=== PATIENT | male | born 1990 | race Caucasian/White ===

== ENCOUNTER 2017-06-14 08:04 | Inpatient (IN) | payer SELFPAY ==
[~2017-06-14] VITALS: Ht 172.7 cm; Wt 95.3 kg
[2017-06-14] MEDS ORDERED: ONDANSETRON HCL 4MG/2ML VIAL IV ONE (09:15)
[2017-06-14] MEDS ORDERED: FAMOTIDINE 20MG/2ML VIAL IV ONE (09:15)
[2017-06-14] MEDS ORDERED: MORPHINE SULFATE 2 MG/ML CPJ (NOT FOR IM USE) IV ONE ×2 (09:15)
[2017-06-14] MEDS ORDERED: SODIUM CHLORIDE 0.9% 1000ML BAG (SEPSIS BOLUS) IV ONE (09:15)
[2017-06-14 09:35] LABS: BASOPHILS % 0.5 % (0.0-2.0); HEMATOCRIT. 48.9 % (42.0-52.0); LYMPHOCYTES % 10.4 % (20.0-50.0); MEAN CORPUSCULAR VOLUME 97.1 fL (80.0-94.0); MEAN PLATELET VOLUME 10.4 fl (7.4-10.4); NEUTROPHILS % 85.1 % (40.0-76.0); PLATELET 163 x1000/uL (130-400); RED BLOOD CELL COUNT 5.04 mill/uL (4.7-6.1); RED CELL DISTRIBUTION WIDTH 14.4 % (11.6-14.6)
[2017-06-14 10:07] LABS: INR 1.1; PROTHROMBIN TIME 11.4 sec (9.4-11.6)
[2017-06-14 10:10] LABS: HEMOGLOBIN. 16.1 g/dL (14.0-18.0)
[2017-06-14 10:11] LABS: MEAN CORPUSCULAR HEMOGLOBIN 31.9 pg (28.0-32.0)
[2017-06-14 10:25] LABS: CARBON DIOXIDE 17 mEq/L (21-32); CHLORIDE 100 mEq/L (98-107)
[2017-06-14] MEDS ORDERED: PIPERACILLIN/TAZOBACTAM 3.375GM/50ML PREMIX IV ONE (11:00)
[2017-06-14] MEDS ORDERED: LEVOFLOXACIN 750MG PREMIX 150 ML IV ONE (11:45)
[2017-06-14 16:02] LABS: CLARITY URINE CLOUDY (CLEAR); COLOR URINE DARK YELLOW (YELLOW); GLUCOSE URINE NEGATIVE (NEGATIVE); KETONES URINE 1+ (NEGATIVE); LEUKOCYTE ESTERASE URINE TRACE (NEGATIVE); NITRITE URINE NEGATIVE (NEGATIVE); OCCULT BLOOD URINE TRACE (NEGATIVE); PROTEIN URINE 2+ (NEGATIVE); SPECIFIC GRAVITY URINE 1.032 (1.005-1.030)
[2017-06-14 16:50] VITALS: BP 142/93
[2017-06-14 17:27] VITALS: BP 142/93
[2017-06-14] MEDS ORDERED: MORPHINE SULFATE 10 MG/ML CPJ IV PRN (18:30)
[2017-06-14 20:00] VITALS: BP 126/87
[2017-06-14] MEDS ORDERED: LORAZEPAM 1MG TABLET PO PRN ×2 (20:45→23:15)
[2017-06-14] MEDS: ONDANSETRON HCL 4MG/2ML VIAL IV PRN (20:55)
[2017-06-14] MEDS ORDERED: MAGNESIUM 2 G PREMIX 50 ML IV PRN (21:00)
[2017-06-14] MEDS ORDERED: MVI, ADULT NO.1 10 ML, FOLIC ACID 1 MG, THIAMINE HCL 100 MG in SODIUM CHLORIDE 0.9% 1,0... IV SCH ×4 (22:00)
[2017-06-15] VITALS: BP 135/91
[2017-06-15 00:07] LABS: CHLORIDE 96 mEq/L (98-107)
[2017-06-15 00:16] LABS: CARBON DIOXIDE 20 mEq/L (21-32)
[2017-06-15] MEDS: PANTOPRAZOLE SODIUM 40 MG/VIAL IV SCH ×3 (02:09→21:27)
[2017-06-15] MEDS: DIPHENHYDRAMINE 50MG/ML VIAL IV PRN ×2 (02:20→21:32)
[2017-06-15] MEDS: MORPHINE SULFATE 10 MG/ML CPJ IV PRN ×4 (02:21→14:37)
[2017-06-15 04:00] VITALS: BP 135/93
[2017-06-15] MEDS: ONDANSETRON HCL 4MG/2ML VIAL IV PRN ×4 (05:41→21:27)
[2017-06-15 06:41] LABS: BASOPHILS % 0.4 % (0.0-2.0); EOSINOPHILS % 0.2 % (0.0-5.0); HEMOGLOBIN. 14.2 g/dL (14.0-18.0); LYMPHOCYTES % 12.7 % (20.0-50.0); MEAN CORPUSCULAR HEMOGLOBIN 34.6 pg (28.0-32.0); MEAN PLATELET VOLUME 12.7 fl (7.4-10.4); MONOCYTES % 6.2 % (2.0-8.0); NEUTROPHILS % 80.5 % (40.0-76.0); PLATELET 156 x1000/uL (130-400); RED BLOOD CELL COUNT 4.11 mill/uL (4.7-6.1); RED CELL DISTRIBUTION WIDTH 14.9 % (11.6-14.6)
[2017-06-15 06:43] LABS: HEMATOCRIT. 41.8 % (42.0-52.0)
[2017-06-15 08:00] VITALS: BP 118/76
[2017-06-15] MEDS: POTASSIUM CHLORIDE INJ 40 MEQ in DEXT 5%/0.9% NACL 1,000 ML IV SCH ×2 (09:10→16:24)
[2017-06-15 10:16] LABS: PHOSPHORUS 1.3 mg/dL (2.5-4.9)
[2017-06-15 12:00] VITALS: BP 119/76
[2017-06-15 16:00] VITALS: BP 112/87
[2017-06-15] MEDS: FOLIC ACID 1MG TABLET PO SCH (16:16)
[2017-06-15] MEDS: THIAMINE HCL 100MG TABLET PO SCH (16:16)
[2017-06-15] MEDS: MULTIVITAMINS,THER W-MINERALS TABLET PO SCH (16:17)
[2017-06-15] MEDS: ACETAMINOPHEN 325MG TABLET PO PRN (16:25)
[2017-06-15 16:39] LABS: CHLORIDE 100 mEq/L (98-107)
[2017-06-15 16:46] LABS: CARBON DIOXIDE 16 mEq/L (21-32)
[2017-06-15 16:58] LABS: AMYLASE 72 IU/L (25-115)
[2017-06-15] MEDS ORDERED: HYDROMORPHONE HCL/PF 2MG/ML CPJ IM PRN (17:00)
[2017-06-15] MEDS: CHLORDIAZEPOXIDE 25MG CAPSULE PO SCH (17:25)
[2017-06-15] MEDS: HYDROMORPHONE HCL/PF 2MG/ML CPJ IV PRN (19:28)
[2017-06-15 20:00] VITALS: BP 126/81
[2017-06-16] VITALS: BP 108/71
[2017-06-16] MEDS: ONDANSETRON HCL 4MG/2ML VIAL IV PRN ×4 (01:25→18:44)
[2017-06-16] MEDS: HYDROMORPHONE HCL/PF 2MG/ML CPJ IV PRN ×4 (01:26→18:44)
[2017-06-16] MEDS: POTASSIUM CHLORIDE INJ 40 MEQ in DEXT 5%/0.9% NACL 1,000 ML IV SCH ×2 (03:16→14:00)
[2017-06-16 04:00] VITALS: BP 122/77
[2017-06-16 07:10] LABS: BASOPHILS % 0.4 % (0.0-2.0); EOSINOPHILS % 0.6 % (0.0-5.0); HEMATOCRIT. 33.7 % (42.0-52.0); HEMOGLOBIN. 11.6 g/dL (14.0-18.0); LYMPHOCYTES % 20.3 % (20.0-50.0); MEAN CORPUSCULAR VOLUME 95.7 fL (80.0-94.0); MEAN PLATELET VOLUME 10.6 fl (7.4-10.4); MONOCYTES % 13.4 % (2.0-8.0); NEUTROPHILS % 65.3 % (40.0-76.0); PLATELET 138 x1000/uL (130-400); RED BLOOD CELL COUNT 3.52 mill/uL (4.7-6.1); RED CELL DISTRIBUTION WIDTH 14.5 % (11.6-14.6)
[2017-06-16 08:00] VITALS: BP 126/78
[2017-06-16 08:45] LABS: CARBON DIOXIDE 21 mEq/L (21-32); CHLORIDE 98 mEq/L (98-107)
[2017-06-16] MEDS: THIAMINE HCL 100MG TABLET PO SCH (10:18)
[2017-06-16] MEDS: PANTOPRAZOLE SODIUM 40 MG/VIAL IV SCH ×2 (10:18→21:21)
[2017-06-16] MEDS: MULTIVITAMINS,THER W-MINERALS TABLET PO SCH (10:19)
[2017-06-16] MEDS: FOLIC ACID 1MG TABLET PO SCH (10:19)
[2017-06-16] MEDS: CHLORDIAZEPOXIDE 25MG CAPSULE PO SCH ×2 (10:19→18:44)
[2017-06-16] MEDS: MAGNESIUM/ALUMINUM HYDROXIDE/SIMETHICONE 30ML UDC PO PRN (11:07)
[2017-06-16 12:00] VITALS: BP 118/79
[2017-06-16] MEDS ORDERED: CALCIUM CHLORIDE 1,000 MG in DEXT 5% WATER 90 ML IV NR ×2 (12:00→21:00)
[2017-06-16] MEDS ORDERED: POTASSIUM PHOS,M-BASIC-D-BASIC 30 MMOL in DEXT 5% WATER 500 ML IV NR (13:00)
[2017-06-16] MEDS: ACETAMINOPHEN 325MG TABLET PO PRN (14:01)
[2017-06-16] MEDS ORDERED: HYDROMORPHONE HCL/PF 2MG/ML CPJ IM PRN (15:00)
[2017-06-16 16:00] VITALS: BP 122/92
[2017-06-16] MEDS: METRONIDAZOLE 500 MG PREMIX 100 ML IV SCH ×2 (16:22→22:43)
[2017-06-16] MEDS: LORAZEPAM 1MG TABLET PO PRN (17:08)
[2017-06-16] MEDS: LEVOFLOXACIN 500MG PREMIX 100 ML IV SCH (18:44)
[2017-06-16 20:00] VITALS: BP 104/63
[2017-06-17] VITALS: BP 120/70
[2017-06-17] MEDS: HYDROMORPHONE HCL/PF 2MG/ML CPJ IV PRN ×6 (00:20→20:56)
[2017-06-17 04:00] VITALS: BP 135/68
[2017-06-17] MEDS: POTASSIUM CHLORIDE INJ 40 MEQ in DEXT 5%/0.9% NACL 1,000 ML IV SCH ×2 (06:20→16:26)
[2017-06-17] MEDS: METRONIDAZOLE 500 MG PREMIX 100 ML IV SCH ×2 (06:20→14:46)
[2017-06-17 08:00] VITALS: BP 159/93
[2017-06-17] MEDS: MULTIVITAMINS,THER W-MINERALS TABLET PO SCH (10:06)
[2017-06-17] MEDS: CHLORDIAZEPOXIDE 25MG CAPSULE PO SCH ×2 (10:07→18:56)
[2017-06-17] MEDS: PANTOPRAZOLE SODIUM 40 MG/VIAL IV SCH ×2 (10:08→20:57)
[2017-06-17] MEDS: FOLIC ACID 1MG TABLET PO SCH (10:08)
[2017-06-17] MEDS: THIAMINE HCL 100MG TABLET PO SCH (10:08)
[2017-06-17] MEDS: ONDANSETRON HCL 4MG/2ML VIAL IV PRN ×3 (10:55→18:56)
[2017-06-17 11:57] LABS: CARBON DIOXIDE 23 mEq/L (21-32); CHLORIDE 100 mEq/L (98-107); PHOSPHORUS 1.6 mg/dL (2.5-4.9)
[2017-06-17 12:00] VITALS: BP 131/77
[2017-06-17] MEDS: LORAZEPAM 1MG TABLET PO PRN (12:15)
[2017-06-17] MEDS: LEVOFLOXACIN 500MG PREMIX 100 ML IV SCH (15:48)
[2017-06-17 16:00] VITALS: BP 140/70
[2017-06-17] MEDS ORDERED: POTASSIUM PHOS,M-BASIC-D-BASIC 20 MMOL in DEXT 5% WATER 243.3333 ML IV NR (16:00)
[2017-06-17] MEDS ORDERED: MAGNESIUM 4 G PREMIX 100 ML IV NR (16:00)
[2017-06-17 20:00] VITALS: BP 132/69
[2017-06-17] MEDS: ACETAMINOPHEN 325MG TABLET PO PRN (20:57)
[2017-06-18] VITALS: BP 118/65
[2017-06-18] MEDS: HYDROMORPHONE HCL/PF 2MG/ML CPJ IV PRN ×6 (00:19→21:07)
[2017-06-18 04:00] VITALS: BP 130/70
[2017-06-18] MEDS: POTASSIUM CHLORIDE INJ 40 MEQ in DEXT 5%/0.9% NACL 1,000 ML IV SCH ×3 (05:05→21:14)
[2017-06-18] MEDS: ACETAMINOPHEN 325MG TABLET PO PRN ×3 (05:06→20:59)
[2017-06-18] MEDS: LORAZEPAM 1MG TABLET PO PRN ×2 (05:16→18:48)
[2017-06-18 06:48] LABS: INR 1.2; PARTIAL THROMBOPLASTIN TIME 26.6 sec (23.4-31.0)
[2017-06-18 06:50] LABS: HEMATOCRIT. 28.5 % (42.0-52.0); HEMOGLOBIN. 9.6 g/dL (14.0-18.0); MEAN CORPUSCULAR HEMOGLOBIN 32.4 pg (28.0-32.0); MEAN CORPUSCULAR VOLUME 95.7 fL (80.0-94.0); MEAN PLATELET VOLUME 8.8 fl (7.4-10.4); PLATELET 198 x1000/uL (130-400); RED BLOOD CELL COUNT 2.97 mill/uL (4.7-6.1); RED CELL DISTRIBUTION WIDTH 15.4 % (11.6-14.6)
[2017-06-18 08:00] VITALS: BP 145/75
[2017-06-18] MEDS: THIAMINE HCL 100MG TABLET PO SCH (08:23)
[2017-06-18] MEDS: FOLIC ACID 1MG TABLET PO SCH (08:23)
[2017-06-18] MEDS: MULTIVITAMINS,THER W-MINERALS TABLET PO SCH (08:24)
[2017-06-18] MEDS: PANTOPRAZOLE SODIUM 40 MG/VIAL IV SCH ×2 (08:24→21:00)
[2017-06-18] MEDS: CHLORDIAZEPOXIDE 25MG CAPSULE PO SCH ×2 (08:24→17:04)
[2017-06-18] MEDS: ONDANSETRON HCL 4MG/2ML VIAL IV PRN ×2 (08:35→18:54)
[2017-06-18 08:58] LABS: CARBON DIOXIDE 29 mEq/L (21-32); CHLORIDE 98 mEq/L (98-107); PHOSPHORUS 2.3 mg/dL (2.5-4.9)
[2017-06-18 11:26] LABS: AMMONIA 27 uMol/L (<32)
[2017-06-18 12:00] VITALS: BP 117/82
[2017-06-18 16:00] VITALS: BP 163/82
[2017-06-18 18:01] LABS: PLATELET ESTIMATE NORMAL
[2017-06-18 20:00] VITALS: BP 137/78
[2017-06-19] VITALS: BP 138/75
[2017-06-19] MEDS: HYDROMORPHONE HCL/PF 2MG/ML CPJ IV PRN ×6 (01:13→23:13)
[2017-06-19] MEDS: LORAZEPAM 1MG TABLET PO PRN ×3 (03:10→20:36)
[2017-06-19 04:00] VITALS: BP 136/88
[2017-06-19] MEDS: ONDANSETRON HCL 4MG/2ML VIAL IV PRN ×5 (05:00→23:10)
[2017-06-19] MEDS: POTASSIUM CHLORIDE INJ 40 MEQ in DEXT 5%/0.9% NACL 1,000 ML IV SCH ×2 (05:18→16:03)
[2017-06-19 08:03] VITALS: BP 128/83
[2017-06-19] MEDS: PANTOPRAZOLE SODIUM 40 MG/VIAL IV SCH ×2 (09:42→23:19)
[2017-06-19] MEDS: CHLORDIAZEPOXIDE 25MG CAPSULE PO SCH ×2 (09:42→17:40)
[2017-06-19] MEDS: FOLIC ACID 1MG TABLET PO SCH (09:42)
[2017-06-19] MEDS: THIAMINE HCL 100MG TABLET PO SCH (09:42)
[2017-06-19] MEDS: MULTIVITAMINS,THER W-MINERALS TABLET PO SCH (09:42)
[2017-06-19 12:00] VITALS: BP 130/81
[2017-06-19 12:04] LABS: HEMATOCRIT 27.7 % (42.0-52.0); HEMOGLOBIN 9.1 g/dL (14.0-18.0); MEAN CORPUSCULAR HEMOGLOBIN 31.4 pg (28.0-32.0); MEAN CORPUSCULAR VOLUME 95.5 fL (80.0-94.0); PLATELET 266 x1000/uL (130-400); RED CELL DISTRIBUTION WIDTH 15.1 % (11.6-14.6)
[2017-06-19 12:13] LABS: CARBON DIOXIDE 28 mEq/L (21-32); CHLORIDE 99 mEq/L (98-107)
[2017-06-19 16:00] VITALS: BP 124/86
[2017-06-19 20:00] VITALS: BP 116/62
[2017-06-19] MEDS: ACETAMINOPHEN 325MG TABLET PO PRN (23:11)
[2017-06-20] VITALS: BP 115/84
[2017-06-20] MEDS: ONDANSETRON HCL 4MG/2ML VIAL IV PRN ×2 (03:21→07:01)
[2017-06-20 04:00] VITALS: BP 141/71
[2017-06-20] MEDS: HYDROMORPHONE HCL/PF 2MG/ML CPJ IV PRN ×2 (06:52→08:36)
[2017-06-20] MEDS: LORAZEPAM 1MG TABLET PO PRN ×2 (07:01→15:02)
[2017-06-20] MEDS: ACETAMINOPHEN 325MG TABLET PO PRN ×3 (07:07→21:25)
[2017-06-20 08:00] VITALS: BP 104/68
[2017-06-20] MEDS: CHLORDIAZEPOXIDE 25MG CAPSULE PO SCH ×2 (08:13→17:15)
[2017-06-20] MEDS: THIAMINE HCL 100MG TABLET PO SCH (08:13)
[2017-06-20] MEDS: FOLIC ACID 1MG TABLET PO SCH (08:13)
[2017-06-20] MEDS: PANTOPRAZOLE SODIUM 40 MG/VIAL IV SCH ×2 (08:13→21:15)
[2017-06-20] MEDS: MULTIVITAMINS,THER W-MINERALS TABLET PO SCH (08:13)
[2017-06-20] MEDS: POTASSIUM CHLORIDE INJ 40 MEQ in DEXT 5%/0.9% NACL 1,000 ML IV SCH ×3 (08:14→18:01)
[2017-06-20 08:28] LABS: CHLORIDE 100 mEq/L (98-107)
[2017-06-20 08:46] LABS: CARBON DIOXIDE 26 mEq/L (21-32)
[2017-06-20 12:00] VITALS: BP 116/67
[2017-06-20] MEDS: MORPHINE SULFATE 2 MG/ML CPJ (NOT FOR IM USE) IV PRN ×3 (12:17→21:25)
[2017-06-20] MEDS: METOCLOPRAMIDE HCL 10MG/2ML VIAL IV SCH ×2 (15:02→21:34)
[2017-06-20 16:00] VITALS: BP 124/73
[2017-06-20] MEDS: MAGNESIUM/ALUMINUM HYDROXIDE/SIMETHICONE 30ML UDC PO PRN (17:15)
[2017-06-20] MEDS: DIPHENHYDRAMINE 50MG/ML VIAL IV PRN (18:08)
[2017-06-20 20:00] VITALS: BP 141/80
[2017-06-21] VITALS: BP 130/79
[2017-06-21] MEDS: ACETAMINOPHEN 325MG TABLET PO PRN ×2 (01:35→09:39)
[2017-06-21] MEDS: MORPHINE SULFATE 2 MG/ML CPJ (NOT FOR IM USE) IV PRN ×3 (01:36→10:35)
[2017-06-21] MEDS: ONDANSETRON HCL 4MG/2ML VIAL IV PRN (01:49)
[2017-06-21 04:00] VITALS: BP 125/70
[2017-06-21] MEDS: POTASSIUM CHLORIDE INJ 40 MEQ in DEXT 5%/0.9% NACL 1,000 ML IV SCH (04:55)
[2017-06-21] MEDS: METOCLOPRAMIDE HCL 10MG/2ML VIAL IV SCH (06:40)
[2017-06-21 08:00] VITALS: BP 119/72
[2017-06-21] MEDS: PANTOPRAZOLE SODIUM 40 MG/VIAL IV SCH (09:04)
[2017-06-21] MEDS: CHLORDIAZEPOXIDE 25MG CAPSULE PO SCH (09:04)
[2017-06-21] MEDS: FOLIC ACID 1MG TABLET PO SCH (09:04)
[2017-06-21] MEDS: THIAMINE HCL 100MG TABLET PO SCH (09:04)
[2017-06-21] MEDS: MULTIVITAMINS,THER W-MINERALS TABLET PO SCH (09:04)
[2017-06-21] MEDS: MAGNESIUM/ALUMINUM HYDROXIDE/SIMETHICONE 30ML UDC PO PRN (09:38)
[2017-06-21 10:35] VITALS: BP 119/72
[2017-06-21] MEDS ORDERED: KETOROLAC 30MG/ML VIAL IV PRN (11:00)
[2017-06-21] MEDS ORDERED: SODIUM CHLORIDE 0.9% 1,000 ML IV SCH (11:15)
== END 2017-06-21 12:05 | disposition left against medical advice (07) | DRG 720 ==
LOC: ER 08:32 → 6EST 11:56 → EDBEDREQSVC 12:01 → EDBEDREQTM 12:01 → EDBEDREQ 12:01 → ENRESERV 14:52
PROVIDERS: ADMIT Internal Medicine; ATTEND Internal Medicine
DX: A41.9 Sepsis, unspecified organism (principal); E87.2 Acidosis; N17.9 Acute kidney failure, unspecified; R18.8 Other ascites; K85.20 Alcohol induced acute pancreatitis without necrosis or infection; E87.1 Hypo-osmolality and hyponatremia; E83.42 Hypomagnesemia; K81.9 Cholecystitis, unspecified; K76.0 Fatty (change of) liver, not elsewhere classified; E83.39 Other disorders of phosphorus metabolism; E78.1 Pure hyperglyceridemia; E86.0 Dehydration; E87.6 Hypokalemia; F10.239 Alcohol dependence with withdrawal, unspecified; F17.200 Nicotine dependence, unspecified, uncomplicated; Z53.21 Procedure and treatment not carried out due to patient leaving prior to being seen by health care provider; I10 Essential (primary) hypertension; K21.9 Gastro-esophageal reflux disease without esophagitis; K82.8 Other specified diseases of gallbladder; K29.70 Gastritis, unspecified, without bleeding; R33.9 Retention of urine, unspecified; Z88.0 Allergy status to penicillin
CPT/HCPCS: 36415; 74176; 74181; 76705; 78227; 80048; 80053; 80061; 80076; 81001; 82140; 82150; 82248; 83036; 83605; 83690; 83735; 84100; 84478; 85025; 85027; 85610; 85730; 87040; 87086; 93005; 96361; 96365; 96375; 99285; A9537; C1893; C9113; J1170; J1200; J1956; J2270; J2405; J2765; J3411; J3475; J3480; J3490; J7030; J7042; J7060

== ENCOUNTER 2017-12-07 18:02 | Emergency (ER) | payer MEDICAID | END 2017-12-07 19:06 | disposition left against medical advice (07) | LOC: ER 19:05 | DX: Z53.21 Procedure and treatment not carried out due to patient leaving prior to being seen by health care provider (principal) ==

== ENCOUNTER 2018-03-12 12:51 | Emergency (ER) | payer MEDICAID ==
[~2018-03-12] VITALS: Ht 175.3 cm; Wt 100.0 kg
[2018-03-12 12:56] VITALS: BP 154/75
== END 2018-03-12 13:11 | disposition home or self-care (01) ==
LOC: ER 13:06
DX: Z48.02 Encounter for removal of sutures (principal); I10 Essential (primary) hypertension; Z88.0 Allergy status to penicillin
CPT/HCPCS: 99281; Z7610